=== PATIENT | male | born 1975 | race Two or more races ===

== ENCOUNTER 2018-11-18 17:17 | Emergency (ER) | payer BC ==
[~2018-11-18] VITALS: Ht 175.3 cm; Wt 114.8 kg
[2018-11-18 17:50] VITALS: BP 141/83
[2018-11-18] MEDS ORDERED: IBUPROFEN 800 MG TAB PO ONE (19:15)
[2018-11-18] MEDS ORDERED: ACETAMINOPHEN 500 MG TAB PO ONE (19:15)
== END 2018-11-18 20:17 | disposition home or self-care (01) ==
LOC: ER 17:23
CPT/HCPCS: 73000; 73030